=== PATIENT | female | born 1965 | race Caucasian/White ===

== ENCOUNTER → 2016-10-02 | Outpatient (CLI) | payer OTHER ==
--- NOTE | 2016-10-02 17:44 | REPMRS ---
Patient History The patient states she had a clinical breast exam in 09/2016. Patient is postmenopausal and is nulliparous. No known family history of cancer. Digital Woman Screen Mammo: October 02, 2016 - Exam #: [id number] Bilateral CC and MLO view(s) were taken. Technologist: Leda Vora, Technologist Prior study comparison: September 20, 2015, digital woman screen mammo performed at [facility]. September 14, 2014, digital woman screen mammo performed at [facility]. September 09, 2013, digital woman screen mammo performed at [facility]. FINDINGS: There are scattered fibroglandular densities. There has been no change in the appearance of the mammogram from the prior studies. There is a mild amount of scattered fibroglandular density which is fairly symmetric. There is no interval development of dominant mass, architectural distortion, or clustered microcalcification suggestive of malignancy. ASSESSMENT: BI-RADS/ACR category 1 mammogram. Negative. Recommendation Routine screening mammogram in 1 year (for women over age 40). This mammogram was interpreted with the aid of an FDA-approved computer-aided dectection system. Electronically Signed By: Kishor Barrett MD 10/02/16 [id number]
== END ==
LOC: M WHC 15:12
PROVIDERS: ATTEND Nurse Practitioner Women's Health
DX: Z12.31 Encounter for screening mammogram for malignant neoplasm of breast (principal); Z78.0 Asymptomatic menopausal state

== ENCOUNTER → 2016-10-02 | Outpatient (REF) | payer OTHER | LOC: M SFHCWAGY 15:18 | PROVIDERS: ATTEND Nurse Practitioner Women's Health | DX: Z12.4 Encounter for screening for malignant neoplasm of cervix (principal) ==

== ENCOUNTER → 2017-10-03 | Outpatient (REF) | payer OTHER | LOC: M SFHCWAGY 09:10 | DX: Z12.4 Encounter for screening for malignant neoplasm of cervix (principal) | CPT/HCPCS: G0123 ==

== ENCOUNTER → 2017-10-03 | Outpatient (CLI) | payer OTHER | LOC: M WHC 08:56 | DX: Z12.31 Encounter for screening mammogram for malignant neoplasm of breast (principal); Z78.0 Asymptomatic menopausal state | CPT/HCPCS: 77067 ==

== ENCOUNTER → 2020-08-25 | Outpatient (CLI) | payer OTHER ==
--- NOTE | 2020-08-25 12:08 | REPMRS ---
Patient History The patient states she had a clinical breast exam in 2020. No known family history of cancer. Digital Woman Screen Mammo: August 25, 2020 - Exam #: [id number] Bilateral CC and MLO view(s) were taken. Technologist: Korina Navarrete, Technologist Prior study comparison: October 09, 2018, bilateral digital woman screen mammo performed at [facility]. October 03, 2017, digital woman screen mammo performed at [facility]. October 02, 2016, digital woman screen mammo performed at [facility]. FINDINGS: The breast tissue is heterogeneously dense. This may lower the sensitivity of mammography. The Volpara volumetric breast density category is: C. There is a moderate amount of heterogeneously dense fibroglandular tissue which is fairly symmetric. There is no interval development of dominant mass, architectural distortion, or grouped microcalcification typical of malignancy. There has been no change in the appearance of the mammogram from the prior studies. 3-D tomosynthesis shows no additional findings. Assessment: BI-RADS/ACR category 1 mammogram. Negative Mammogram. Recommendation Routine screening mammogram of both breasts in 1 year (for women over age 40). This patient's [facility] Lifetime Breast Cancer RIsk is estimated at 11.6 %. This mammogram was interpreted with the aid of an FDA-approved computer-aided dectection system. Electronically Signed By: Kishor Barrett MD 08/25/20 [id number]
== END ==
LOC: M WHC 09:34
PROVIDERS: ATTEND Nurse Practitioner Women's Health
DX: Z12.31 Encounter for screening mammogram for malignant neoplasm of breast (principal)

== ENCOUNTER → 2020-08-25 | Outpatient (REF) | payer OTHER | LOC: M SFHCWAGY 13:36 | PROVIDERS: ATTEND Nurse Practitioner Women's Health | DX: Z12.4 Encounter for screening for malignant neoplasm of cervix (principal); Z01.419 Encounter for gynecological examination (general) (routine) without abnormal findings ==

== ENCOUNTER → 2022-09-25 | Outpatient (REF) | payer OTHER | LOC: M SFHCWAGY 17:57 | PROVIDERS: ATTEND Nurse Practitioner Family | DX: Z12.4 Encounter for screening for malignant neoplasm of cervix (principal) ==

== ENCOUNTER → 2022-09-25 | Outpatient (CLI) | payer OTHER | LOC: M WHC 10:51 | PROVIDERS: ATTEND Advanced Practice Midwife | DX: Z12.31 Encounter for screening mammogram for malignant neoplasm of breast (principal) ==

== ENCOUNTER → 2023-10-08 | Outpatient (CLI) | payer OTHER | LOC: M WHC 11:34 | PROVIDERS: ATTEND Nurse Practitioner Family | DX: Z12.31 Encounter for screening mammogram for malignant neoplasm of breast (principal) ==

== ENCOUNTER → 2024-10-12 | Outpatient (CLI) | payer OTHER | LOC: M WHC 12:20 | PROVIDERS: ATTEND Nurse Practitioner Family | DX: Z12.31 Encounter for screening mammogram for malignant neoplasm of breast (principal); R92.333 Mammographic heterogeneous density, bilateral breasts ==

== ENCOUNTER → 2024-10-12 | Outpatient (REF) | payer OTHER | LOC: M SFHCWAGY 13:08 | PROVIDERS: ATTEND Nurse Practitioner Family | DX: Z12.4 Encounter for screening for malignant neoplasm of cervix (principal) | CPT/HCPCS: 87624; G0123 ==

== ENCOUNTER 2025-04-28 15:19 | Inpatient (IN) | payer OTHER ==
[~2025-04-28] VITALS: Ht 172.7 cm; Wt 59.3 kg
[2025-04-28] MEDS ORDERED: HYDR-3490 PO (15:39)
[2025-04-28 16:31] LABS: PLATELET COUNT, AUTOMATED 433 10^3/uL (150-450)
[2025-04-28 16:38] LABS: ALT/SGPT 58.0 U/L (7.0-40); AST/SGOT 82.0 U/L (<34); CALCIUM LEVEL 9.1 MG/DL (8.3-10.6); CARBON DIOXIDE LEVEL 20.0 MMOL/L (20-31); CHLORIDE LEVEL 89.0 MMOL/L (98-107); CREATININE FOR GFR 0.98 MG/DL (0.55-1.30); GLOMERULAR FILTRATION RATE 65.7 (>45); POTASSIUM SERUM 3.8 MMOL/L (3.5-5.1); SODIUM LEVEL 126.0 MMOL/L (136-145)
[2025-04-28] MEDS ORDERED: ISOVUE-370 76% 100 ML VIAL As Ordered ONE (16:44)
[2025-04-28] MEDS: ONDANSETRON 4MG/2ML VIAL IV ONE (16:44)
[2025-04-28] MEDS: MORPHINE 4 MG/ML 1 ML VIAL IV PRN (16:47)
[2025-04-28 17:21] LABS: LYMPHOCYTES 3 % (16-44); MONOCYTES 2 % (0-5); MYELOCYTES 1 % (0-0); NEUTROPHILS 91 % (28-66)
[2025-04-28 17:22] LABS: PLATELET CLUMPS SMALL AMT; PLATELET ESTIMATE NORMAL (NORMAL)
[2025-04-28 17:28] LABS: CK-MB VALUE MASS 19.1 NG/ML (<3.6)
[2025-04-28 17:30] LABS: CPK CREATINE PHOSPHOKINASE 1134.0 U/L (34-145); MB/CK RELATIVE INDEX 1.68 (< OR =4)
[2025-04-28 17:41] LABS: CK-MB VALUE MASS 16.2 NG/ML (<3.6)
[2025-04-28 17:42] LABS: CPK CREATINE PHOSPHOKINASE 1024.0 U/L (34-145); MB/CK RELATIVE INDEX 1.58 (< OR =4)
[2025-04-28] MEDS: PIPERACILLIN/TAZOBACTAM SOD 3.375 GM in DEXTROSE 5% (D5W) ADV/MINI-BAG 50 ML IV ONE (17:47)
[2025-04-28] MEDS: NS (Normal Saline) 0.9% 1,000 ML IV ONE (17:50)
[2025-04-28] MEDS: NS 0.9% IV STA (18:36)
[2025-04-28] MEDS: VANCOMYCIN HCL 1,000 MG, VIAL MATE ADAPTER 1 EACH in NS 250 ML IV ONE (18:36)
[2025-04-28] MEDS: [UNRECOGNIZED DRUG - OTHER] IV STA (18:36)
[2025-04-28] MEDS ORDERED: LIDOCAINE 2% 100 MG/5 ML SDV (FOR ANES.) As Ordered ONE (18:52)
[2025-04-28] MEDS ORDERED: ROCURONIUM BROMIDE 50MG/5ML VIAL As Ordered ONE (18:52)
[2025-04-28] MEDS ORDERED: MIDAZOLAM INJ 2 MG/2 ML VIAL As Ordered ONE (18:52)
[2025-04-28] MEDS ORDERED: dexAMETHasone 4 MG/ML 1 ML VIAL As Ordered ONE (18:52)
[2025-04-28 18:53] LABS: KETONE, URINE AUTO RFX TRACE mg/dL (NEGATIVE); LEUKOCYTE ESTERASE UR AUTO RFX NEGATIVE (NEGATIVE); MUCUS, URINE RFX SMALL (NEGATIVE); NITRITE, URINE AUTO RFX NEGATIVE (NEGATIVE); RBC, URINE AUTO RFX 13 /HPF (0-3); SQUAM EPITHELIAL CELL UR AURFX 0 /HPF (0-6); WBC, URINE AUTO RFX 3 /HPF (0-3)
[2025-04-28] MEDS ORDERED: LIDOCAINE 1% SDV 30 ML VIAL As Ordered ONE (19:35)
[2025-04-28] MEDS ORDERED: SUCCINYLCHOLINE 100MG/5ML SYRINGE As Ordered ONE (20:01)
[2025-04-28] MEDS ORDERED: ACETAMINOPHEN 1000MG/100ML IV BAG As Ordered ONE (20:06)
[2025-04-28] MEDS ORDERED: LACRILUBE (AKWA TEARS) OPHTH OINT 3.5 GM As Ordered ONE (20:11)
[2025-04-28] MEDS ORDERED: SUGAMMADEX SODIUM 500 MG/5 ML VIAL As Ordered ONE (20:12)
[2025-04-28] MEDS ORDERED: KETOROLAC 30 MG/ML 1 ML VIAL As Ordered ONE (20:12)
[2025-04-28] MEDS ORDERED: ONDANSETRON 4MG/2ML VIAL As Ordered ONE (20:12)
[2025-04-28] MEDS ORDERED: HYDROmorphone HCL 2 MG/ML 1 ML VIAL As Ordered ONE (20:16)
[2025-04-28] MEDS ORDERED: dexmedeTOMIDine (4 MCG/ML) 200 MCG/50 ML BTL As Ordered ONE (20:18)
[2025-04-28] MEDS ORDERED: PHENYLephrine 500MCG 5ML (100MCG/ML) SYRINGE As Ordered ONE (21:20)
[2025-04-28] MEDS ORDERED: LR 1,000 ML IV SCH (21:40)
[2025-04-28] MEDS ORDERED: ONDANSETRON 4MG/2ML VIAL IV PRN ×2 (21:40→23:40)
[2025-04-28] MEDS ORDERED: HYDROMORPHONE HCL 0.5 MG/0.5 ML SYRINGE IV PRN (21:40)
[2025-04-28 22:24] LABS: PLATELET COUNT, AUTOMATED 323 10^3/uL (150-450)
[2025-04-28 22:41] LABS: ALT/SGPT 46.0 U/L (7.0-40); AST/SGOT 65.0 U/L (<34); CALCIUM LEVEL 7.0 MG/DL (8.3-10.6); CARBON DIOXIDE LEVEL 21.0 MMOL/L (20-31); CHLORIDE LEVEL 99.0 MMOL/L (98-107); CREATININE FOR GFR 0.94 MG/DL (0.55-1.30); GLOMERULAR FILTRATION RATE 69.0 (>45); POTASSIUM SERUM 3.4 MMOL/L (3.5-5.1); SODIUM LEVEL 130.0 MMOL/L (136-145)
[2025-04-28] MEDS ORDERED: MED REC COMMENT (23:38)
[2025-04-28] MEDS ORDERED: HOME MED LIST COMPLETE! XX SCH (23:40)
[2025-04-28] MEDS ORDERED: MORPHINE 4 MG/ML 1 ML VIAL IV PRN ×2 (23:40)
[2025-04-28 23:55] VITALS: BP 93/53; TEMP 97.1; O2SAT 98
[2025-04-29] VITALS (20 sets, daily range): BP systolic 88–160; BP diastolic 51–67; TEMP 96.5–98.1; O2SAT 92–100
[2025-04-29] MEDS: SODIUM CHLORIDE 0.9% 1000 ML IV ONE (00:36)
[2025-04-29] MEDS: NS (Normal Saline) 0.9% 1,000 ML IV SCH (00:38)
[2025-04-29] MEDS: PIPERACILLIN/TAZOBACTAM SOD 4.5 GM in DEXTROSE 5% (D5W) ADV/MINI-BAG 50 ML IV SCH (00:39)
[2025-04-29] MEDS: KCL 10MEQ/100ML SWI (KRUN) 10 MEQ in IV 1 EA IV SCH (05:10)
[2025-04-29 05:53] LABS: BASO # 0.1 10^3/uL (0.0-0.2); BASO % 0.3 % (0.0-1.0); EOS # 0.0 10^3/uL (0.0-0.5); EOS % 0.1 % (0.0-3.0); LYMPH # 0.7 10^3/uL (1.5-5.0); LYMPH % 3.9 % (24.0-44.0); MONO # 0.8 10^3/uL (0.0-0.8); MONO % 4.3 % (2.0-8.0); NEUTROPHILS # 16.7 10^3/uL (1.5-8.5); NEUTROPHILS % 90.8 % (36.0-66.0); PLATELET COUNT, AUTOMATED 301 10^3/uL (150-450)
[2025-04-29 06:13] LABS: ALT/SGPT 50.0 U/L (7.0-40); AST/SGOT 75.0 U/L (<34); CALCIUM LEVEL 6.7 MG/DL (8.3-10.6); CARBON DIOXIDE LEVEL 22.0 MMOL/L (20-31); CHLORIDE LEVEL 102.0 MMOL/L (98-107); CREATININE FOR GFR 0.77 MG/DL (0.55-1.30); GLOMERULAR FILTRATION RATE 87.7 (>45); MAGNESIUM LEVEL 1.6 MG/DL (1.8-2.4); POTASSIUM SERUM 3.4 MMOL/L (3.5-5.1); SODIUM LEVEL 135.0 MMOL/L (136-145)
[2025-04-29] MEDS ORDERED: ENOXAPARIN 40 MG/0.4 ML SYRINGE (J1650 PER 10MG) SC SCH (09:00)
[2025-04-29] MEDS: PANTOPRAZOLE 40MG VIAL IV SCH (10:10)
[2025-04-29] MEDS: MAG SULF 1GM/100ML (MAG RUN) 1 GM in IV 1 EA IV ONE (10:10)
[2025-04-29] MEDS: NS (Normal Saline) 0.9% 1,000 ML IV ONE (10:13)
[2025-04-29] MEDS: MORPHINE 4 MG/ML 1 ML VIAL IV PRN ×2 (14:55→21:53)
[2025-04-30 03:59] VITALS: BP 131/59; TEMP 97.6; O2SAT 100
[2025-04-30 06:06] LABS: BASO # 0.0 10^3/uL (0.0-0.2); BASO % 0.2 % (0.0-1.0); EOS # 0.0 10^3/uL (0.0-0.5); EOS % 0.2 % (0.0-3.0); LYMPH # 1.2 10^3/uL (1.5-5.0); LYMPH % 6.0 % (24.0-44.0); MONO # 0.6 10^3/uL (0.0-0.8); MONO % 3.1 % (2.0-8.0); NEUTROPHILS # 17.4 10^3/uL (1.5-8.5); NEUTROPHILS % 88.5 % (36.0-66.0); PLATELET COUNT, AUTOMATED 347 10^3/uL (150-450)
[2025-04-30 06:33] LABS: CALCIUM LEVEL 7.9 MG/DL (8.3-10.6); CARBON DIOXIDE LEVEL 22 MMOL/L (20-31); CHLORIDE LEVEL 103 MMOL/L (98-107); CREATININE FOR GFR 0.60 MG/DL (0.55-1.30); GLOMERULAR FILTRATION RATE > 90.0 (>45); POTASSIUM SERUM 3.1 MMOL/L (3.5-5.1); SODIUM LEVEL 138 MMOL/L (136-145)
[2025-04-30 08:03] VITALS: BP 133/74; TEMP 97.2
[2025-04-30 08:25] LABS: MAGNESIUM LEVEL 2.0 MG/DL (1.8-2.4)
[2025-04-30 08:36] LABS: C REACTIVE PROTEIN QUANTITATIV 21.30 MG/DL (<1.0)
[2025-04-30] MEDS: KCL 40MEQ IN D5/0.45NS 1000ML 1,000 ML IV SCH (11:06)
[2025-04-30] MEDS: KCL 10MEQ/100ML SWI (KRUN) 10 MEQ in IV 1 EA IV SCH (11:06)
[2025-04-30] MEDS: ENOXAPARIN 40 MG/0.4 ML SYRINGE (J1650 PER 10MG) SC SCH (11:07)
[2025-04-30 11:43] VITALS: BP 130/71; TEMP 97.1
[2025-04-30] MEDS ORDERED: GLUCOSE 4 GM CHEW PO PRN (12:30)
[2025-04-30] MEDS ORDERED: GLUCAGON INJ 1 MG VIAL SC PRN (12:30)
[2025-04-30] MEDS: DEXTROSE 50% 50 ML SYRINGE IV PRN (13:22)
[2025-04-30 16:16] VITALS: BP 136/83; TEMP 98
[2025-04-30 20:06] VITALS: BP 139/85; TEMP 97.4; O2SAT 100
[2025-05-01] VITALS: BP 142/63; TEMP 97.8; O2SAT 96
[2025-05-01 04:36] VITALS: BP 132/60; TEMP 97.5; O2SAT 96
[2025-05-01 07:02] LABS: BASO # 0.0 10^3/uL (0.0-0.2); BASO % 0.2 % (0.0-1.0); EOS # 0.1 10^3/uL (0.0-0.5); EOS % 0.6 % (0.0-3.0); LYMPH # 1.4 10^3/uL (1.5-5.0); LYMPH % 8.7 % (24.0-44.0); MONO # 0.9 10^3/uL (0.0-0.8); MONO % 5.3 % (2.0-8.0); NEUTROPHILS # 13.5 10^3/uL (1.5-8.5); NEUTROPHILS % 81.4 % (36.0-66.0); PLATELET COUNT, AUTOMATED 365 10^3/uL (150-450)
[2025-05-01 07:20] LABS: CALCIUM LEVEL 7.7 MG/DL (8.3-10.6); CARBON DIOXIDE LEVEL 23 MMOL/L (20-31); CHLORIDE LEVEL 103 MMOL/L (98-107); CREATININE FOR GFR 0.49 MG/DL (0.55-1.30); GLOMERULAR FILTRATION RATE > 90.0 (>45); MAGNESIUM LEVEL 1.7 MG/DL (1.8-2.4); POTASSIUM SERUM 3.7 MMOL/L (3.5-5.1); SODIUM LEVEL 134 MMOL/L (136-145)
[2025-05-01 07:28] VITALS: BP 131/72; TEMP 98; O2SAT 96
[2025-05-01] MEDS ORDERED: MORPHINE 4 MG/ML 1 ML VIAL IV PRN (09:55)
[2025-05-01] MEDS: BISACODYL 10 MG SUPP PR ONE (10:42)
[2025-05-01] MEDS: MAG SULF 1GM/100ML (MAG RUN) 1 GM in IV 1 EA IV SCH (10:42)
[2025-05-01] MEDS: PERCOCET 5MG/325MG TAB PO PRN (11:01)
[2025-05-01 11:50] VITALS: BP 115/56; TEMP 97.4; O2SAT 97
[2025-05-01] MEDS: KCL 20MEQ IN D5/NS 1000ML 1,000 ML IV SCH (12:05)
[2025-05-01 19:24] VITALS: BP 130/64; TEMP 97; O2SAT 99
[2025-05-02 05:10] LABS: PLATELET COUNT, AUTOMATED 372 10^3/uL (150-450)
[2025-05-02 05:25] LABS: C REACTIVE PROTEIN QUANTITATIV 8.35 MG/DL (<1.0); CALCIUM LEVEL 7.8 MG/DL (8.3-10.6); CARBON DIOXIDE LEVEL 26 MMOL/L (20-31); CHLORIDE LEVEL 104 MMOL/L (98-107); CREATININE FOR GFR 0.52 MG/DL (0.55-1.30); GLOMERULAR FILTRATION RATE > 90.0 (>45); POTASSIUM SERUM 3.6 MMOL/L (3.5-5.1); SODIUM LEVEL 136 MMOL/L (136-145)
[2025-05-02 05:30] VITALS: BP 160/75; TEMP 97.8; O2SAT 94
[2025-05-02 05:49] LABS: ATYPICAL LYMPH 2 % (0-5); LYMPHOCYTES 12 % (16-44); METAMYELOCYTES 3 % (0-0); MONOCYTES 3 % (0-5); NEUTROPHILS 78 % (28-66)
[2025-05-02 05:52] LABS: PLATELET ESTIMATE NORMAL (NORMAL)
[2025-05-02 07:34] VITALS: BP 123/62; TEMP 97.8; O2SAT 96
[2025-05-02] MEDS: ALVIMOPAN 12 MG CAPSULE PO SCH (09:06)
[2025-05-02] MEDS: KETOROLAC 30 MG/ML 1 ML VIAL IV SCH (15:18)
[2025-05-02] MEDS: MIRALAX *UNIT DOSE* 17 GM PACKET PO ONE (15:18)
[2025-05-02 19:24] VITALS: BP 147/70; TEMP 97.5; O2SAT 97
[2025-05-03 05:12] VITALS: BP 141/74; TEMP 98.2; O2SAT 97
[2025-05-03 05:30] LABS: BASO # 0.1 10^3/uL (0.0-0.2); BASO % 0.5 % (0.0-1.0); EOS # 0.2 10^3/uL (0.0-0.5); EOS % 1.0 % (0.0-3.0); LYMPH # 2.0 10^3/uL (1.5-5.0); LYMPH % 8.4 % (24.0-44.0); MONO # 1.7 10^3/uL (0.0-0.8); MONO % 7.1 % (2.0-8.0); NEUTROPHILS # 16.7 10^3/uL (1.5-8.5); NEUTROPHILS % 71.5 % (36.0-66.0); PLATELET COUNT, AUTOMATED 497 10^3/uL (150-450)
[2025-05-03 06:00] LABS: C REACTIVE PROTEIN QUANTITATIV 8.55 MG/DL (<1.0); CALCIUM LEVEL 8.4 MG/DL (8.3-10.6); CARBON DIOXIDE LEVEL 26 MMOL/L (20-31); CHLORIDE LEVEL 103 MMOL/L (98-107); CREATININE FOR GFR 0.54 MG/DL (0.55-1.30); GLOMERULAR FILTRATION RATE > 90.0 (>45); POTASSIUM SERUM 4.0 MMOL/L (3.5-5.1); SODIUM LEVEL 138 MMOL/L (136-145)
[2025-05-03 08:06] VITALS: BP 147/72; TEMP 98; O2SAT 95
[2025-05-03] MEDS: NS (Normal Saline) 0.9% 1,000 ML IV SCH (09:45)
[2025-05-03 11:41] LABS: KETONE, URINE AUTO RFX 1+ mg/dL (NEGATIVE); LEUKOCYTE ESTERASE UR AUTO RFX NEGATIVE (NEGATIVE); NITRITE, URINE AUTO RFX NEGATIVE (NEGATIVE); RBC, URINE AUTO RFX 5 /HPF (0-3); SQUAM EPITHELIAL CELL UR AURFX 6 /HPF (0-6); WBC, URINE AUTO RFX 2 /HPF (0-3)
[2025-05-03] MEDS: NS 500 ML IV ONE (12:01)
[2025-05-03 12:08] VITALS: BP 158/75; TEMP 97.1; O2SAT 100
[2025-05-03] MEDS ORDERED: NS (Normal Saline) 0.9% 1,000 ML IV SCH (15:40)
[2025-05-03 21:03] VITALS: BP 140/65; TEMP 97.6; O2SAT 98
[2025-05-03 23:57] LABS: CALCIUM LEVEL 7.9 MG/DL (8.3-10.6); CARBON DIOXIDE LEVEL 22 MMOL/L (20-31); CHLORIDE LEVEL 104 MMOL/L (98-107); CREATININE FOR GFR 0.47 MG/DL (0.55-1.30); GLOMERULAR FILTRATION RATE > 90.0 (>45); POTASSIUM SERUM 3.5 MMOL/L (3.5-5.1); SODIUM LEVEL 136 MMOL/L (136-145)
[2025-05-04 05:10] VITALS: BP 136/68; TEMP 97; O2SAT 96
[2025-05-04 05:23] LABS: BASO # 0.1 10^3/uL (0.0-0.2); BASO % 0.6 % (0.0-1.0); EOS # 0.3 10^3/uL (0.0-0.5); EOS % 1.5 % (0.0-3.0); LYMPH # 2.0 10^3/uL (1.5-5.0); LYMPH % 9.2 % (24.0-44.0); MONO # 1.8 10^3/uL (0.0-0.8); MONO % 8.4 % (2.0-8.0); NEUTROPHILS # 14.8 10^3/uL (1.5-8.5); NEUTROPHILS % 69.7 % (36.0-66.0); PLATELET COUNT, AUTOMATED 515 10^3/uL (150-450)
[2025-05-04 05:44] LABS: C REACTIVE PROTEIN QUANTITATIV 6.88 MG/DL (<1.0); CALCIUM LEVEL 7.9 MG/DL (8.3-10.6); CARBON DIOXIDE LEVEL 22 MMOL/L (20-31); CHLORIDE LEVEL 104 MMOL/L (98-107); CREATININE FOR GFR 0.47 MG/DL (0.55-1.30); GLOMERULAR FILTRATION RATE > 90.0 (>45); POTASSIUM SERUM 3.4 MMOL/L (3.5-5.1); SODIUM LEVEL 137 MMOL/L (136-145)
[2025-05-04 07:25] VITALS: BP 132/56; TEMP 98.4; O2SAT 94
[2025-05-04] MEDS: POTASSIUM CHLORIDE 10MEQ SR TABLET PO ONE (08:41)
[2025-05-04 11:36] VITALS: BP 160/73; TEMP 98.4; O2SAT 95
[2025-05-04] MEDS ORDERED: KETOROLAC 30 MG/ML 1 ML VIAL IV PRN (15:15)
[2025-05-04 19:54] VITALS: BP 117/71; TEMP 98; O2SAT 97
[2025-05-05 04:47] VITALS: BP 148/69; TEMP 97; O2SAT 98
[2025-05-05 06:06] LABS: PLATELET COUNT, AUTOMATED 609 10^3/uL (150-450)
[2025-05-05 06:37] LABS: CALCIUM LEVEL 8.0 MG/DL (8.3-10.6); CARBON DIOXIDE LEVEL 23 MMOL/L (20-31); CHLORIDE LEVEL 106 MMOL/L (98-107); CREATININE FOR GFR 0.51 MG/DL (0.55-1.30); EOSINOPHILS 3 % (0-3); GLOMERULAR FILTRATION RATE > 90.0 (>45); LYMPHOCYTES 15 % (16-44); METAMYELOCYTES 1 % (0-0); MONOCYTES 4 % (0-5); MYELOCYTES 1 % (0-0); NEUTROPHILS 75 % (28-66); PLATELET ESTIMATE INCREASED (NORMAL); POTASSIUM SERUM 3.7 MMOL/L (3.5-5.1); SODIUM LEVEL 141 MMOL/L (136-145)
[2025-05-05 07:47] VITALS: BP 132/75; TEMP 97.3; O2SAT 99
[2025-05-05] MEDS ORDERED: OXYC1TAB23 PO (08:23)
[2025-05-05] MEDS ORDERED: LEVO75TAB PO (08:23)
[2025-05-05] MEDS ORDERED: COLA100C5 PO (08:23)
[2025-05-05] MEDS ORDERED: METR-265 PO (08:23)
[2025-05-05] MEDS ORDERED: BACI1CAP4 PO (08:23)
== END 2025-05-05 11:22 | disposition home or self-care (01) | DRG 853 ==
LOC: M ED 15:19 → M ED INP 18:44 → M PCU 23:46
PROVIDERS: ADMIT Surgery; ATTEND General Practice
PROC: 0DTF0ZZ Resection of Right Large Intestine, Open Approach (ICD-10-PCS; principal; 2025-04-29)
DX: A41.9 Sepsis, unspecified organism (principal); K35.32 Acute appendicitis with perforation, localized peritonitis, and gangrene, without abscess; K63.1 Perforation of intestine (nontraumatic); C17.9 Malignant neoplasm of small intestine, unspecified; C77.2 Secondary and unspecified malignant neoplasm of intra-abdominal lymph nodes; K56.50 Intestinal adhesions [bands], unspecified as to partial versus complete obstruction; C18.0 Malignant neoplasm of cecum; C78.7 Secondary malignant neoplasm of liver and intrahepatic bile duct; I24.89 Other forms of acute ischemic heart disease; E83.52 Hypercalcemia; E87.6 Hypokalemia; B96.20 Unspecified Escherichia coli [E. coli] as the cause of diseases classified elsewhere; I48.0 Paroxysmal atrial fibrillation; R65.20 Severe sepsis without septic shock; I10 Essential (primary) hypertension; F17.200 Nicotine dependence, unspecified, uncomplicated; R79.89 Other specified abnormal findings of blood chemistry

== ENCOUNTER → 2025-07-19 | Outpatient (CLI) | payer OTHER ==
[~2025-07-19] VITALS: Ht 172.7 cm; Wt 55.0 kg
[~2025-07-19] MED LIST: BACI1CAP4 PO; COLA100C5 PO; HYDR-3490 PO; LEVO75TAB PO; MED REC COMMENT; METR-265 PO; OXYC1TAB23 PO
[2025-07-19 07:15] VITALS: TEMP 97.6
[2025-07-19] MEDS: ceFAZolin SODIUM 2 GM in DEXTROSE 5% (D5W) ADV/MINI-BAG 50 ML IV ONE (08:26)
[2025-07-19] MEDS: NS (Normal Saline) 0.9% 1,000 ML IV SCH (08:27)
[2025-07-19] MEDS: MIDAZOLAM INJ 2 MG/2 ML VIAL IV PRN (08:34)
[2025-07-19] MEDS: LIDOCAINE 1% MDV 20 ML VIAL SC SCH (08:50)
[2025-07-19 09:22] VITALS: BP 155/79; O2SAT 98
== END ==
LOC: M IRPRO 07:03
PROVIDERS: ATTEND Specialist
DX: C18.9 Malignant neoplasm of colon, unspecified (principal)
CPT/HCPCS: 36561; 76937; 99152; 99153; J0688; J1642; J2250; J3010